=== PATIENT | male | born 1990 | race Caucasian/White ===

== ENCOUNTER 2025-04-10 12:45 | Emergency (ER) | payer OTHER, SELFPAY ==
--- OUTSIDE RECORDS SUMMARY | 2025-04-10 12:55 | XMS_ITS | Clinical Summary ---
Author Organization [facility] Address [address] 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 This disclosure is being madepursuant to the Care Everywhere program and may not contain all information available regarding this patient. Last updated 18.[facility] Allergies No known active allergies Medications * Be aware that medications may not be up to date on this document. Alwaysverify current medications with the patient. No known medications Active Problems Problem Noted Date Diagnosed Date Encounter for general adult medical examination with abnormal findings 07/25/2018 Night sweats 07/25/2018 Immunizations Immunization Administration Dates Next Due COVID SINTIA PRIMARY 18+YR 09/24/2020 TDAP (7yrs+) 07/12/2016 Family History Medical History Relation Name Comments Heart Disease Maternal Grandmother Heart Disease Paternal Grandfather Relation Name Status Comments Father Alive Maternal Grandfather Alive Maternal Grandmother Alive Mother Alive Paternal Grandfather Alive Paternal Grandmother Alive Social History Tobacco Use Types Packs/Day Years Used Date Smoking Tobacco: Never Smokeless Tobacco: Never Tobacco Cessation:Counseling Given: Not Answered Comments:Denies Alcohol Use Standard Drinks/Week Comments Yes 6 (1 standard drink = 0.6 oz pur e alcohol) on weekend AUDIT-C Answer Date Recorded Frequency of Alcohol Consumption 2-3 times a wee k 07/06/2020 Average Number of Drinks 3 or 4 021 Frequency of Binge Drinking Less than monthly PHQ-2 Answer Date Recorded Patient Health Questionnaire-2 Score 0 12/05/2023 Sex and Gender Information Value Date Recorded Sex Assigned at Not on file Legal Sex Male 11:16 AM CDT Gender Identity Not on file Sexual Orientation Not on file Last Filed Vital Signs Vital Sign Reading Time Taken Comments Blood Pressure 113/68 03/06/2024 12:53 PM CDT Pulse 65 12/05/2023 2:57 PM CDT Temperature 37.2 C (99 F) 12/05/2023 2:57 PM CDT Respiratory Rate 16 10/06/2022 12:15 PM CDT Oxygen Saturation 96% 12/05/2023 2:57 PM CDT Inhaled Oxygen Concentration - - Weight 81.6 kg (180 lb) 03/06/2024 12:53 PM CDT Height 177.8 cm (5' 10) 03/06/2024 12:53 PM CDT Body Mass Index 25.83 03/06/2024 12:53 PM CDT Plan of Treatment Health Maintenance Due Date Last Done Comments HEPATITIS B VACCINE (1 of 3 - 19+ 3-dose series) 09/01/2007 HPV VACCINE (1 - 3-dose SCDM series) 09/01/2015 DEPRESSION SCREENING 06/18/2024 12/05/2023, 10/06/2022, 10/29/2021 COVID-19 VACCINE (2 - 2024-2 6 season) 2025 09/24/2020 INFLUENZA VACCINE (#1) 2025 DTAP/TDAP/TD VACCINES (2 - T d or Tdap) 07/12/2026 07/12/2016 ZOSTER VACCINE (1 of 2) 2038 HEPATITIS C SCREENING Discontinued HIB VACCINE Aged Out No longer eligi ble based on patient's age to complete this topic HIV SCREENING Discontinued MENINGOCOCCAL (Group B) VACCINE SHARED DECISION-MAKING Aged Out No longer eligible based on patient's age to complete this topic MENINGOCOCCAL GROUPS A/C/Y/W VACCINE Aged Out No longer eligible based on patient's age to complete this topic PNEUMOCOCCAL VACCINE Aged Out No long er eligible based on patient's age to complete this topic Insurance [facility] CARE Care Teams Store Product Demonstrator Relationship Specialty Start Date End Date Ciara Gardiner APRN-GRACE [address] [place] [address] PCP - General 02/28/24
[2025-04-10 12:57] VITALS: BP 137/64; PULSE 54; RESP 16; TEMP 36.7; O2SAT 100
--- NOTE | 2025-04-10 13:07 | ED_ITS ---
HPI - Wound/Laceration General Chief Complaint: Wound/Laceration Stated Complaint: cut arm Time Seen by Provider: 04/10/25 12:58 Source: patient and RN notes reviewed Mode of arrival: ambulatory Limitations: no limitations History of Present Illness HPI narrative: 34-year-old male patient presents today with a laceration to the right forearm. At work he was cutting a zip tie with a knife and accidentally cut himself. Injury occurred 2.5 hours prior to arrival. He is up-to-date on his tetanus vaccine. He is currently pain-free but occasionally has some radiating pain to his hand. Related Data Home Medications ?Medication ?Instructions ?Recorded ?Confirmed ?Last Taken ?Type No Home Medications 04/10/25 04/10/25 U nknown History Allergies Allergy/AdvReac Type Severity Reaction Status Date / Time No Known Allergies Allergy Verified 04/10/25 12:57 PMFSH Comments At time of signature, I have reviewed and agree with nursing past medical, surgical, social and family history unless otherwise noted. Please see nursing chart for further information. There is no relevant family history pertinent to the presenting complaint Exam Narrative: GENERAL: Well-appearing, well-nourished, and in no acute distress. HEAD: Normocephalic, atraumatic. EYES: EOMI. No redness or drainage. Conjunctivae normal. ENT: Mucous membranes pink and moist. NECK: Normal AROM. CHEST: No respiratory distress. EXTREMITIES: Right anterior forearm: 1.5 cm partial-thickness linear laceration. No active bleeding. Neurovascularly intact. See procedure note SKIN: Warm, dry, no rash. Capillary refill normal. Normal skin turgor. NEURO: No focal deficits. Alert and oriented x3. Gait steady. PSYCH: Normal affect. No signs of depression or anxiety. Course Course Level of Care: Express Care Visit Vital Signs Vital signs: Vital Signs Temperature 98.1 F 04/10/25 12:57 Pulse Rate 54 L 04/10/25 12:57 Respiratory Rate 16 04/10/25 12:57 Blood Pressure 137/64 04/10/25 12:57 Pulse Oximetry 100 04/10/25 12:57 Oxygen Delivery Room Air 04/10/25 12:57 Temperature 98.1 F 04/10/25 12:57 Pulse Rate 54 L 04/10/25 12:57 Respiratory Rate 16 04/10/25 12:57 Blood Pressure 137/64 04/10/25 12:57 Pulse Oximetry 100 04/10/25 12:57 Oxygen Delivery Room Air 04/10/25 12:57 Reviewed Procedures Laceration Laceration 1: Date: 04/10/25 Time: 13:27 Site: upper extremity Side (If applicable): right Size (cm): 1.5 Description: linear Depth: simple, single layer Local Anesthetic: lidocaine 1% Amount of anesthesia used (mL): 1 Pre-repair: wound explored and irrigated ====== Skin Level ====== Skin layer closed with: nylon Size (cm): 5-0 Number of sutures: 4 Technique: simple, interrupted ====== Subcutaneous Layer ====== ====== Muscle Layer ====== ====== Tendon Layer ====== Dressing: Dressed with nonadherent dressing MDM - Wound/Laceration MDM Narrative Medical decision making narrative: 34-year-old male patient presents today with a laceration to the right forearm. At work he was cutting a zip tie with a knife and accidentally cut himself. Injury occurred 2.5 hours prior to arrival. He is up-to-date on his tetanus vaccine. Upon exam, patient has a 1.5 cm partial-thickness linear laceration to the right anterior forearm. After cleansing, laceration was closed with 4 sutures. Patient tolerated procedure well. Dressed with nonadherent dressing. Vital signs stable. Anticipatory guidance given. Differential Diagnosis Differential diagnosis: Likely laceration, abrasion and avulsion of skin Critical Care Time Critical Care Time Critical Care Time: No Discharge Plan Discharge Clinical Impression: Laceration of forearm, right Qualifiers: Encounter type: initial encounter Qualified Code(s): S51.811A - Laceration without foreign body of right forearm, initial encounter Patient Disposition: Home Condition: Stable Instructions: Care For Your Stitches (DC), Laceration (DC) Additional Instructions: Your sutures need to be removed in 7-10 days. Wear the dressing that has been applied for the first 24 hours to allow a scab to start forming. After this, you may remove and wash as normal with soap and water. Do NOT wash with peroxide or alcohol. Do NOT apply antibiotic ointment. Do not submerge your sutures in standing water such as pools, hot tubs, or sinks until they are removed. Take tylenol or ibuprofen at home for pain, if able. Follow up with your PCP with any signs of infection such as redness, swelling, increased pain, or drainage. Patient Language: [place] Prescriptions: No Action No Home Medications Follow-up/Referrals: UNKNOWN,DOCTOR [Primary Care Provider] Time of Disposition: 13:27
[2025-04-10] MEDS: LIDOCAINE 1% LOCAL INJ 2 ML AMPUL 4 ML INFILTRATE (13:10)
== END 2025-04-10 13:30 | disposition home or self-care (01) ==
PROVIDERS: Emergency Provider Nurse Practitioner
DX: S51.811A Laceration without foreign body of right forearm, initial encounter (principal); W26.0XXA Contact with knife, initial encounter
CPT/HCPCS: 12001; 99202; G0463; J2003